=== PATIENT | female | born 1945 | race Caucasian/White ===

== ENCOUNTER 2016-12-01 10:33 | Emergency (ER) | payer MEDICARE ==
[2016-12-01 11:32] VITALS: BP 131/71
--- NOTE | 2016-12-01 11:33 | UC ---
Dizzy HPI HPI Summary: left ear pain x 3 days + dizziness , no nausea or vomiting worse with head movement, better with rest no sinus pain , no visual changes, no fever or chills - History Of Current Complaint Chief Complaint: UCEar Stated Complaint: LEFT EAR PAIN,VERTIGO Time Seen by Provider: 12/01/16 10:37 Hx Obtained From: Patient Onset/Duration: Gradual Onset, Lasting Days - 3, Still Present Timing: Constant Severity Initially: Moderate Severity Currently: Moderate Character: Dizzy Aggravating Factor(s): Nothing Alleviating Factor(s): Rest Associated Signs And Symptoms: Negative: Vomiting, Diaphoresis, Tinnitus, Chest Pain, SOB, Palpitations, Unsteady Gait, Visual Changes, Decreased Oral Intake, Change In Medication, Change In Diet, OTC Medications - Allergies/Home Medications Allergies/Adverse Reactions: Allergies Allergy/AdvReac Type Severity Reaction Status Date / Time Ibuprofen Allergy Rash Verified 12/01/16 10:57 Home Medications: Home Medications Amlodipine Besylate [Norvasc 10 mg tab] 10 mg PO DAILY 12/01/16 [History Confirmed 12/01/16] Levothyroxine TAB* [Synthroid TAB*] 100 mcg PO DAILY 12/01/16 [History Confirmed 12/01/16] Metoprolol Succinate [Toprol Xl] 50 mg PO DAILY 12/01/16 [History Confirmed ] Omeprazole CAP* [Prilosec CAP* 20 MG] 20 mg PO BID 12/01/16 [History Confirmed 12/01/16] Spironolactone TAB* [Aldactone TAB*] 50 mg PO DAILY 12/01/16 [History Confirmed 12/01/16] Venlafaxine HCl [Venlafaxine HCl ER-] 75 mg PO DAILY 12/01/16 [History Confirmed 12/01/16] PMH/Surg Hx/FS Hx/Imm Hx Endocrine History: Thyroid Disease, Hypothyroidism Cardiovascular History: Hypertension - Surgical History Surgical History: Yes Surgery Procedure, Year, and Place: appendix, tonsils, gall bladder, leg veins - Family History Known Family History: Negative: Diabetes - Social History Alcohol Use: None Substance Use Type: None Smoking Status (MU): Former Smoker Review of Systems Constitutional: Negative Skin: Negative Eyes: Negative ENT: Negative Respiratory: Negative All Other Systems Reviewed And Are Negative: Yes Physical Exam Triage Information Reviewed: Yes Appearance: Well-Appearing, No Pain Distress, Well-Nourished Vital Signs: Initial Vital Signs Temp 98.8 F 12/01/16 10:43 Pulse 82 12/01/16 10:43 Resp 18 12/01/16 10:43 BP 131/71 12/01/16 10:43 Vital Signs Reviewed: Yes Eyes: Positive: Conjunctiva Clear ENT: Positive: Normal ENT inspection, Hearing grossly normal, Pharynx normal Neck exam: Normal Neck: Positive: Supple, Nontender, No Lymphadenopathy Respiratory: Positive: Chest non-tender, Lungs clear, Normal breath sounds Cardiovascular: Positive: RRR, No Murmur, Pulses Normal Abdominal Exam: Normal Abdomen Description: Positive: Soft Bowel Sounds: Positive: Present Musculoskeletal: Positive: ROM Intact Neurological: Positive: Alert Skin Exam: Normal UC Physical Exam Vital Signs On Initial Exam: Initial Vitals Temp Pulse Resp BP 98.8 F 82 18 131/71 12/01/16 10:43 12/01/16 10:43 12/01/16 10:43 12/01/16 10:43 - Neurological Exam Neurological: Normal, Sensory/Motor Intact, Alert, Oriented to Person Place, Time, CN Intact II-III, Reflexes Intact, Normal Gait Dizzy Course/Dx - Differential Dx/Diagnosis Provider Diagnoses: vertigo Discharge - Discharge Plan Condition: Stable Disposition: HOME Prescriptions: Losartan Potassium 100 mg PO DAILY #14 tab Meclizine TAB* [Antivert 12.5 TAB*] 25 mg PO TID PRN #15 tab PRN Reason: Dizziness Patient Education Materials: Vertigo (ED)
== END 2016-12-01 11:42 | disposition home or self-care (01) ==
LOC: UCCORT 10:33
DX: R42 Dizziness and giddiness (principal); E03.9 Hypothyroidism, unspecified; I10 Essential (primary) hypertension; Z88.6 Allergy status to analgesic agent; Z87.891 Personal history of nicotine dependence
CPT/HCPCS: 99202; G0463